=== PATIENT | male | born 2000 | race Caucasian/White ===

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

== ENCOUNTER 2024-10-17 06:08 | Emergency (ER) | payer OTHER ==
[2024-10-17] MEDS ORDERED: HYDROmorphONE Hydrochloride 0.5 MG/0.5 ML SYRINGE IV ONE (06:25)
[2024-10-17] MEDS ORDERED: Ondansetron Hydrochloride 4 MG/2 ML VIAL IV ONE ×2 (06:25→06:40)
[2024-10-17 07:08] LABS: BUN 13 mg/dl (9-23); SGPT/ALT 14 U/L (5-49)
[2024-10-17 07:18] LABS: BASO # 0.1 10*3/uL (0.0-0.1); BASO % 0.7 % (0.0-1.0); EOS # 0.1 10*3/uL (0.0-0.4); EOS % 1.5 % (1.0-4.0); MEAN CELL VOLUME 88.7 fl (80.0-94.0); MEAN CORPUSCULAR HGB 29.6 pg (27.0-31.0); MEAN PLATELET VOLUME 10.4 fl (9.6-12.3); MONO # 0.6 10*3/uL (0.1-1.0); MONO % 7.6 % (3.0-9.0); NEUT # 5.0 10*3/uL (2.3-7.9); NEUT % 68.2 % (47.0-73.0); NUCLEATED RED BLOOD CELL 0.0 % (0.0-0.0); NUCLEATED RED BLOOD CELL 0.0 10*3/uL (0.0-0.0); PLATELET COUNT AUTOMATED 253 10*3/uL (130-400); RED CELL DISTRI WIDTH 11.9 % (0-14.5)
[2024-10-17] MEDS ORDERED: SODIUM CHLORIDE 0.9% 1,000 ML IV ONE (08:00)
== END 2024-10-17 11:30 | disposition short-term general hospital (02) ==
LOC: ED 06:08
PROVIDERS: Internal Medicine
DX: N13.2 Hydronephrosis with renal and ureteral calculous obstruction (principal); E87.20 Acidosis, unspecified; Z88.5 Allergy status to narcotic agent